=== PATIENT | male | born 1985 | race Two or more races ===

== ENCOUNTER 2016-11-24 13:00 | Emergency (ER) | payer MEDICAID ==
[2016-11-24 14:07] LABS: ABSOLUTE NEUTROPHIL COUNT 7.2 K/mm3 (1.8-7.7); BASO # 0.1 K/mm3 (0.0-0.2); BASO % 0.4 % (0.2-1.0); EOS # 0.1 (0.0-0.5); HEMATOCRIT 45.6 % (32.0-52.0); HEMOGLOBIN 15.5 gm/l (14.0-18.0); IMM NEUT # 0.1 K/mm3 (0-0.2); LYMPH # 3.1 (1.0-4.8); LYMPH % 27.1 % (15-45); MEAN CELL VOLUME 85.2 fl (80.0-94.0); MEAN PLATELET VOLUME 9.7 fl (7.4-10.4); MONO # 0.9 (0.0-0.8); MONO % 7.8 % (4-12); NEUT % 62.7 % (43-75); PLATELET COUNT 341 K/mm3 (130-400); RED CELL DISTRIBUTION WIDTH 12.6 % (11.5-14.5)
[2016-11-24 14:22] LABS: TROPONIN I < 0.01 ng/ml (0.0-0.06)
[2016-11-24 14:26] LABS: ALB/GLOB RATIO 1.4 (>1.0); ALBUMIN 4.4 gm/dL (3.5-5.7); CALCIUM 9.6 mg/dL (8.6-10.3)
[2016-11-24] MEDS ORDERED: KETOROLAC TROMETHAMINE 30 MG/ML 1 ML VIAL ONE (14:42)
--- NOTE | 2016-11-24 15:22 | RAD ---
Exam: Two-view chest COMPARISON: None INDICATION: Left-sided chest pain since 11/17/2016. FINDINGS: PA and lateral views of the chest were obtained. Cardiac silhouette is within normal limits. Lungs are well-inflated. There is no focal airspace disease or pleural effusion. No pneumothorax is identified. Bones of the chest wall within normal limits. IMPRESSION: Negative two-view chest.
== END 2016-11-24 15:36 | disposition home or self-care (01) ==
LOC: ED 13:00
DX: R07.9 Chest pain, unspecified (principal)